=== PATIENT | male | born 1980 | race Caucasian/White ===

== ENCOUNTER 2019-08-12 23:38 | Emergency (ER) | payer SELFPAY ==
[~2019-08-12] VITALS: Ht 177.8 cm; Wt 86.4 kg
[2019-08-12 23:49] VITALS: TEMP 98.5
[2019-08-13 00:25] LABS: ALANINE AMINOTRANSFERASE 61 U/L (21-72); ALBUMIN 4.8 gm/dL (3.5-5.0); ALCOHOL(ethanol),MEDICAL 99 mg/dL; ALKALINE PHOSPHATASE 74 U/L (50-136); ANION GAP 11 mmol/L (7-16); AST,SGOT 52 U/L (15-37); BASO # 0.1 (0.0-0.2); BASO % 0.8 % (0.0-2.0); BILIRUBIN,TOTAL 0.6 mg/dL (0.0-1.0); BLOOD UREA NITROGEN 13 mg/dL (9-20); CALCIUM 9.3 mg/dL (8.4-10.2); CARBON DIOXIDE 27 mmol/L (22-30); CHLORIDE 101 mmol/L (98-107); CREATININE, serum 1.06 (0.66-1.25); EOS # 0.2 (0.0-0.7); EOS % 2.9 % (0-4.0); GLUCOSE 94 mg/dL (74-106); GRAN % 47.8 % (42.2-75.2); HEMOGLOBIN 16.4 g/dl (13.5-18.0); LIPASE 142 U/L (23-300); LYMPH # 2.9 (1.2-3.4); MAGNESIUM 1.9 mg/dL (1.6-2.3); MEAN CELL VOLUME 93 fl (80.0-100.0); MEAN CORPUSCULAR HEMOGLOBIN 32 pg (27.0-31.0); MEAN CORPUSCULAR HGB CONC 35 g/dl (33.0-37.0); MEAN PLATELET VOLUME 9.4 fl (7.4-10.4); MONO # 1.1 (0.1-0.6); MONO % 13.1 % (1.7-9.3); PLATELET COUNT 266 K/mm3 (130-400); POTASSIUM 4.2 mmol/L (3.4-5.0); RED BLOOD COUNT 5.08 M/mm3 (4.20-5.60); REDCELL DISTRIBUTION WIDTH-CV 15.3 % (11.5-14.5); SODIUM 139 mmol/L (137-145); TOTAL PROTEIN 8.3 gm/dL (6.4-8.2)
[2019-08-13 00:57] LABS: TROPONIN-I < 0.012 ng/mL (0.000-0.035)
[2019-08-13] MEDS ORDERED: VALIUM 5MG T5 MG/TAB PO (02:17)
[2019-08-13 02:40] VITALS: BP 124/81; PULSE 81
== END 2019-08-13 02:40 | disposition home or self-care (01) ==
LOC: COL.ER 23:38
PROVIDERS: Nurse Practitioner
DX: F10.239 Alcohol dependence with withdrawal, unspecified (principal); F10.229 Alcohol dependence with intoxication, unspecified; F17.210 Nicotine dependence, cigarettes, uncomplicated; F41.9 Anxiety disorder, unspecified; F32.9 Major depressive disorder, single episode, unspecified; Z88.6 Allergy status to analgesic agent; Y90.4 Blood alcohol level of 80-99 mg/100 ml
CPT/HCPCS: J3360; J3411; J3475; J7030